=== PATIENT | female | born 1970 | race Caucasian/White ===

== ENCOUNTER 2016-06-24 21:01 | Emergency (ER) | payer MEDICAID, OTHER ==
[~2016-06-24] VITALS: Ht 180.3 cm; Wt 116.6 kg
[~2016-06-24 21:01] MED LIST: GUAI100S6 PO; NAPR-576 PO; ZITH250T PO; ZOFR4TAB3 SL
[2016-06-24 21:08] VITALS: BP 169/110; PULSE 76; RESP 18; TEMP 98.8; O2SAT 97
--- NOTE | 2016-06-24 21:28 | PD ---
HPI Chief Complaint: GI Complaint Time Seen by Provider: 21:21 Travel History International Travel<30 days: No Contact w/Intl Traveler<30days: No Traveled to known affect area: No History of Present Illness HPI 46-year-old female presents to the emergency department by private transportation for complaint of 5 days of abdominal pain with frequent watery diarrhea. Patient denies dietary indiscretion well water ingestion or foreign travel. Patient also denies any recent antibiotic use. Patient denies melena or hematochezia. Patient denies fever or chills. Patient also complains of headache. Overall body pain 8/10 in intensity. Headache is not sudden onset thunderclap or worst ever but has been present 3 days. No other family members or coworkers or similar symptoms. 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 Patient denies any history of colitis diverticulitis or inflammatory bowel disease no family history of inflammatory bowel disease. Patient denies any dysuria frequency urgency hematuria or flank pain. Patient denies abnormal menses. Patient is 8 para 3 AB 5. Patient has had C-sections in the past no other surgeries. Patient has not noticed any specific weight loss. Patient is unable to identify alleviating factors notes that any oral intake precipitates an episode of diarrhea and abdominal cramping. PFSH Past Medical History Narrative Medical Anxiety depression, bronchitis, migraines, hypertension, uterine fibroids, HSV, , D&C, occasional alcohol use, remote polysubstance use; nursing notes reviewed Bipolar Disorder: Yes Anxiety: Yes Cancer: No Cardiovascular Problems: Yes Diabetes: No Diminished Hearing: No Endocrine: No Gastrointestinal Disorders: No Gout: Yes Genitourinary: Yes (HERPES) Hypertension: Yes (no meds) Immune Disorder: No Implanted Vascular Access Dvce: No Musculoskeletal: Yes (CHRONIC NECK AND BACK PAIN, BULGING DISCS) Neurologic: Yes Psychiatric: Yes (PTSD, OCD, BORDERLINE PERSONALITY DISORDER, POLYSUBSTANCE ABUSE- IN RECOVER) Reproductive: Yes (INTRAUTERINE FIBROIDS, HSV) Respiratory: Yes (BRONCHITIS) Immunizations Current: No Migraines: Yes ?: Not LMP: 06/08/16 : 8 Para: 3 Miscarriage: 3 : 2 Dilation and Curettage (D&C): Yes Past Surgical History Abdominal Surgery: Yes (C SECTION) Section: Yes (X 1) Gynecologic Surgery: Yes (d&c) Other Surgery: Yes Social History Alcohol Use: Yes (beer and wine occas) Tobacco Use: No Substance Use: No (HX -WAS IN RECOVERY-cocaine and crack use) Allergies-Medications (Allergen,Severity, Reaction): Coded Allergies: Morphine (Verified Allergy, Mild, ITCHING, 06/24/16) Reported Meds & Prescriptions Reported Meds & Active Scripts Active Zofran Odt (Ondansetron Odt) 4 Mg Tab 4 Mg SL Q6HR PRN Review of Systems Except as stated in HPI: all other systems reviewed are Neg General / Constitutional: No: Fever, Chills HENT: Positive: Headaches, No: Congestion, Neck Stiffness, Neck Pain Cardiovascular: No: Chest Pain or Discomfort Respiratory: No: Shortness of Breath Gastrointestinal: Positive: Nausea, Diarrhea, Abdominal Pain, No: Vomiting, Hematemesis, Hematochezia, Loss of Appetite Genitourinary: No: Urgency, Frequency, Dysuria, Flank Pain Musculoskeletal: No: Myalgias, Arthralgias Skin: No Rash Neurologic: No: Weakness, Dizziness, Syncope Psychiatric: No: Anxiety Endocrine: No: Heat Intolerance Hematologic/Lymphatic: No: Easy Bruising Physical Exam Narrative GENERAL: Well-developed well-nourished female in no acute distress no respiratory distress SKIN: Warm and dry. HEAD: Normocephalic. EYES: No scleral icterus. No injection or drainage. NECK: Supple, trachea midline. No JVD or lymphadenopathy. No meningismus no nuchal rigidity. CARDIOVASCULAR: Regular rate and rhythm without murmurs, gallops, or rubs. RESPIRATORY: Breath sounds equal bilaterally. No accessory muscle use. GASTROINTESTINAL: Abdomen soft, diffusely tender to palpation without guarding or rebound, nondistended. MUSCULOSKELETAL: No cyanosis, or edema. BACK: Nontender without obvious deformity. No CVA tenderness. Data Data Last Documented VS Vital Signs Date Time Temp Pulse Resp B/P Pulse Ox O2 Delivery O2 Flow Rate FiO2 06/24/16 23:00 98.4 65 20 154/89 99 Room Air Orders Complete Blood Count With Diff (06/24/16 21:21) Comprehensive Metabolic Panel (06/24/16 21:21) Lipase (06/24/16 21:21) Urinalysis - C+S If Indicated (06/24/16 21:21) Iv Access Insert/Monitor (06/24/16 21:21) Ecg Monitoring (06/24/16 21:21) Oximetry (06/24/16 21:21) Sodium Chloride 0.9% Flush (Ns Flush) (06/24/16 21:30) Ed Urine Pregnancytest Poc (06/24/16 21:21) Sodium Chloride 0.9% Flush (Ns Flush) (06/24/16 21:30) C Diff Toxin Pcr (06/24/16 21:21) Enteric Path (Stool) (06/24/16 21:21) Orthostatic Vital Signs (06/24/16 21:21) Magnesium (Mg) (06/24/16 21:21) Ct Abd/Pel W/O Iv Contrast (06/24/16 ) Ketorolac Inj (Toradol Inj) (06/24/16 23:15) Ondansetron Inj (Zofran Inj) (06/24/16 23:15) Sodium Chlor 0.9% 1000 Ml Inj (Ns 1000 M (06/24/16 23:15) Labs Laboratory Tests Test 06/24/16 06/24/16 21:30 22:00 White Blood Count 8.4 TH/MM3 Red Blood Count 4.27 MIL/MM3 Hemoglobin 12.5 GM/DL Hematocrit 36.8 % Mean Corpuscular Volume 86.1 FL Mean Corpuscular Hemoglobin 29.2 PG Mean Corpuscular Hemoglobin 33.9 % Concent Red Cell Distribution Width 12.2 % Platelet Count 308 TH/MM3 Mean Platelet Volume 7.5 FL Neutrophils (%) (Auto) 58.4 % Lymphocytes (%) (Auto) 33.5 % Monocytes (%) (Auto) 6.3 % Eosinophils (%) (Auto) 1.2 % Basophils (%) (Auto) 0.6 % Neutrophils # (Auto) 4.9 TH/MM3 Lymphocytes # (Auto) 2.8 TH/MM3 Monocytes # (Auto) 0.5 TH/MM3 Eosinophils # (Auto) 0.1 TH/MM3 Basophils # (Auto) 0.1 TH/MM3 CBC Comment DIFF FINAL Differential Comment Sodium Level 141 MEQ/L Potassium Level 3.7 MEQ/L Chloride Level 108 MEQ/L Carbon Dioxide Level 24.4 MEQ/L Anion Gap 9 MEQ/L Blood Urea Nitrogen 18 MG/DL Creatinine 0.61 MG/DL Estimat Glomerular Filtration 107 ML/MIN Rate Random Glucose 94 MG/DL Calcium Level 8.4 MG/DL Magnesium Level 1.9 MG/DL Total Bilirubin 0.2 MG/DL Aspartate Amino Transf 22 U/L (AST/SGOT) Alanine Aminotransferase 46 U/L (ALT/SGPT) Alkaline Phosphatase 84 U/L Total Protein 6.9 GM/DL Albumin 3.4 GM/DL Lipase 208 U/L Urine Color STRAW Urine Turbidity CLEAR Urine pH 6.5 Urine Specific [place] 1.004 Urine Protein NEG mg/dL Urine Glucose (UA) NEG mg/dL Urine Ketones NEG mg/dL Urine Occult Blood SMALL Urine Nitrite NEG Urine Bilirubin NEG Urine Leukocyte Esterase NEG Urine RBC 3-5 /hpf Urine WBC 0-2 /hpf Urine Squamous Epithelial 0-5 /hpf Cells Urine Bacteria NONE /hpf Microscopic Urinalysis Comment CULT NOT INDICATED MDM Medical Decision Making Medical Screen Exam Complete: Yes Emergency Medical Condition: Yes Medical Record Reviewed: Yes Interpretation(s) [id number] hCG: Negative Urinalysis normal cbc wnl metabolic panel wnl Vital Signs Date Time Temp Pulse Resp B/P Pulse Ox O2 Delivery O2 Flow Rate FiO2 06/24/16 23:00 98.4 65 20 154/89 99 Room Air 06/24/16 21:47 159/85 166/96 188/101 06/24/16 21:30 98.8 76 18 169/110 97 Room Air 06/24/16 21:30 98.8 76 18 169/110 97 Room Air 06/24/16 21:08 98.8 76 18 169/110 97 CBC & BMP Diagram 06/24/16 21:30 Last Impressions Abdomen/Pelvis CT 06/24/16 0000 Signed Impressions: Service Date/Time: Friday, June 24, 2016 23:27 - CONCLUSION: 1. No acute finding is identified within the abdomen or pelvis on this noncontrast examination. 2. There are 2 separate 3 mm noncalcified pulmonary nodules visualized at the right lung base. One of these was visualized on the 2012 examination and is therefore benign. If the patient has a smoking history, consider followup. Carlos A Donahue MD Differential Diagnosis Diarrheal illness, gastritis, food borne illness, colitis, diverticulitis, inflammatory bowel disease, dehydration, electrolyte disturbance Narrative Course IV access obtained specimens collected and sent for resulting Patient [facility] former Toradol 30 mg IV, Zofran 4 mg IV, normal saline bolus CT abd/pel noncontrast study ordered CT abdomen and pelvis intra-abdominal or intrapelvic reveals no acute abnormality patient is identified to also have 2 bilaterally nodules with recommendation for outpatient follow-up Diagnosis Primary Impression: Diarrhea in adult patient Additional Impression: Pulmonary nodule Referrals: Primary Care Physician call for appointment Patient Instructions: General Instructions Additional Instructions: Follow clear liquid diet for next 12-24 hours advance as tolerated to bland/ Leandro diet and regular diet avoiding fried and fatty foods Take acetaminophen/Tylenol every 4 hours as needed for fever 100.4F or greater or for minor pain Take ibuprofen/Advil/Motrin as tolerated every 6-8 hours as needed for pain associated with inflammation or for fever 100.4F or greater Follow-up with your primary care provider call office on Monday to schedule follow-up appointment May use [id number] Imodium AD per package directions for management of diarrheal symptoms Return to the emergency department for any concerns or change in condition Med/Other Pt SpecificInfo: Prescription(s) given Scripts Ondansetron Odt (Zofran Odt)4 Mg Tab4 Mg SL Q6HR PRN (Nausea/Vomiting) #10 TAB Ref 0 Prov:Chary Larson MD 06/25/16 Disposition: 01 DISCHARGE HOME Condition: Stable Chary Larson MD Jun 24, 2016 21:28
[2016-06-24 21:30] VITALS: BP 169/110; PULSE 76; RESP 18; TEMP 98.8; O2SAT 97
[2016-06-24] MEDS ORDERED: SODIUM CHLORIDE 0.9% FLUSH 10 ML FLUSH IV FLUSH PRN (21:30)
[2016-06-24] MEDS ORDERED: SODIUM CHLORIDE 0.9% FLUSH 10 ML FLUSH IVF PRN (21:30)
[2016-06-24 21:42] LABS: AUTOMATED NEUTROPHIL # 4.9 TH/MM3 (1.8-7.7); BASOPHIL # 0.1 TH/MM3 (0-0.2); BASOPHIL % 0.6 % (0.0-2.0); EOSINOPHIL # 0.1 TH/MM3 (0-0.4); EOSINOPHIL % 1.2 % (0.0-4.0); HEMATOCRIT 36.8 % (35.0-46.0); HEMO FLAGS DIFF FINAL; LYMPH % 33.5 % (9.0-44.0); LYMPHOCYTE # 2.8 TH/MM3 (1.0-4.8); MEAN CELL VOLUME 86.1 FL (80.0-100.0); MEAN CORPUSCULAR HEMOGLOBIN 29.2 PG (27.0-34.0); MEAN CORPUSCULAR HGB CONC 33.9 % (32.0-36.0); MONO % 6.3 % (0.0-8.0); NEUT % 58.4 % (16.0-70.0); PLATELET COUNT 308 TH/MM3 (150-450); RED BLOOD COUNT 4.27 MIL/MM3 (4.00-5.30); RED CELL DISTRIBUTION WIDTH 12.2 % (11.6-17.2); WHITE BLOOD COUNT 8.4 TH/MM3 (4.0-11.0)
[2016-06-24 21:47] VITALS: BP_SYST 159; BP_SYST 166; BP_SYST 188; BP_DIAS 101; BP_DIAS 85; BP_DIAS 96
[2016-06-24 21:47] LABS: CHLORIDE 108 MEQ/L (98-107); POTASSIUM 3.7 MEQ/L (3.5-5.1); SODIUM (NA) 141 MEQ/L (136-145)
[2016-06-24 21:51] LABS: ANION GAP 9 MEQ/L (5-15); BICARBONATE 24.4 MEQ/L (21.0-32.0); BLOOD UREA NITROGEN 18 MG/DL (7-18); MAGNESIUM 1.9 MG/DL (1.5-2.5)
[2016-06-24 21:54] LABS: ALT (GPT) 46 U/L (10-53); AST (GOT) 22 U/L (15-37); GLOMERULAR FILTRATION RATE 107 ML/MIN (>89)
[2016-06-24 21:55] LABS: TOTAL BILIRUBIN ADULT 0.2 MG/DL (0.2-1.0)
[2016-06-24 21:56] LABS: ALKALINE PHOSPHATASE 84 U/L (45-117)
[2016-06-24 22:11] LABS: BLOOD, URINE SMALL (NEG); GLUCOSE,URINE NEG (NEG); KETONE, URINE NEG (NEG); NITRITE,URINE NEG (NEG); PH, URINE 6.5 (5.0-8.5)
[2016-06-24 22:17] LABS: COMMENT (UR) CULT NOT INDICATED; CULTURE IF INDICATED CULT NOT INDICATED; SQUAMOUS EPITHELIAL CELL URINE 0-5 /hpf (0-5); URINE COLOR STRAW (YELLW/STRAW); WBC, URINE 0-2 /hpf (0-5)
[2016-06-24 23:00] VITALS: BP 154/89; PULSE 65; RESP 20; TEMP 98.4; O2SAT 99
[2016-06-24] MEDS ORDERED: ONDANSETRON HCL 4 MG/2 ML VIAL IV PUSH ONE (23:15)
[2016-06-24] MEDS ORDERED: SODIUM CHLOR 0.9% 1000 ML INJ 1,000 ML IV ONE (23:15)
[2016-06-24] MEDS ORDERED: KETOROLAC TROMETHAMINE 30 MG/ML (IVP) VIAL IV PUSH ONE (23:15)
--- NOTE | 2016-06-25 00:07 | RADHPO ---
EXAM DATE/TIME: 06/24/2016 23:27 [facility] COMPARISON: CT ABDOMEN & PELVIS W CONTRAST, August 02, 2012, 11:59. CT ABDOMEN & PELVIS W/O CONTRAST, June 26, 22:25. INDICATIONS : Diffuse abdominal pain with nausea for five days. ORAL CONTRAST: No oral contrast ingested. RADIATION DOSE: 25.03 CTDIvol (mGy) MEDICAL HISTORY : Hypertension. SURGICAL HISTORY : section. ENCOUNTER: Initial ACUITY: 4 - 6 days PAIN SCALE: 6/10 LOCATION: Abdomen. TECHNIQUE: Volumetric scanning of the abdomen and pelvis was performed. Using automated exposure control and ad justment of the mA and/or kV according to patient size, radiation dose was kept as low as reasonably achievable to obtain optimal diagnostic quality images. FINDINGS: LOWER LUNGS: There is a 3 mm noncalcified pulmonary nodule in the right middle lobe and in the right lower lobe. T he right lower lobe nodule is present on the 2012 examination. LIVER: Homogeneous density without lesion. There is no dilation of the biliary tree. No calcified gallston es. SPLEEN: Normal size without lesion. PANCREAS: Within normal limits. KIDNEYS: Normal in size and shape. There is no mass, stone, or hydronephrosis. ADRENAL GLANDS: Within normal limits. VASCULAR: There is no aortic aneurysm. There is mild atherosclerotic disease. BOWEL/MESENTERY: The stomach, small bowel, and colon demonstrate no acute abnormality. There is no free intraperitone al air or fluid. The appendix is normal. ABDOMINAL WALL: Within normal limits. RETROPERITONEUM: There is no lymphadenopathy. BLADDER: No wall thickening or mass. REPRODUCTIVE: Within normal limits. INGUINAL: There is no lymphadenopathy or hernia. MUSCULOSKELETAL: There are stable bone islands within the sacrum and right pubic bone. CONCLUSION: 1. No acute finding is identified within the abdomen or pelvis on this noncontrast examination. 2. There are 2 separate 3 mm noncalcified pulmonary nodules visualized at the right lung base. One of these was visualized on the 2013 examination and is therefore benign. If the patient has a smoking h istory, consider followup. Carlos A Donahue MD on June 25, 2016 at 0:00 Board Certified Radiologist. This report was verified electronically.
[2016-06-25] MEDS ORDERED: ZOFR4TAB3 SL ×3 (00:57→01:28)
[2016-06-25 01:19] VITALS: BP 160/80
[2016-06-25 03:50] LABS: C. DIFF EPI 027 PRESUMPTIVE NEGATIVE (NEGATIVE); C. DIFF TOXIN PCR NEGATIVE (NEGATIVE)
== END 2016-06-25 01:31 | disposition home or self-care (01) ==
LOC: PHED 21:01
DX: R19.7 Diarrhea, unspecified (principal); F41.8 Other specified anxiety disorders; I10 Essential (primary) hypertension; D25.9 Leiomyoma of uterus, unspecified; F31.9 Bipolar disorder, unspecified; R91.1 Solitary pulmonary nodule
CPT/HCPCS: 74176; 80053; 81001; 83690; 83735; 84703; 85025; 87493; 87506; 96374; 96375; 99284; J1885; J2405; J7030